=== PATIENT | male | born 1970 | race Caucasian/White ===

== ENCOUNTER 2024-05-28 15:54 | Emergency (ER) | payer OTHER ==
[~2024-05-28] VITALS: Ht 180.3 cm; Wt 104.3 kg
[~2024-05-28 15:54] MED LIST: NAPR-1172 PO; PRED20TA PO
[2024-05-28 15:57] VITALS: BP_SYST 141; PULSE 99; RESP 18; TEMP 98.1; O2SAT 98
[2024-05-28] MEDS: cephALEXin 500 MG CAPSULE PO ONE (16:23)
[2024-05-28] MEDS: DIPHTH,PERTUSS(ACELL),TET VAC 0.5 ML VIAL (Tdap) I.M. ONE (16:25)
[2024-05-28] MEDS ORDERED: CEPH-548 PO (16:31)
[2024-05-28] MEDS ORDERED: CEPHALEXIN 125 MG/5 ML, 100 ML BTL ONE (16:57)
[2024-05-28] MEDS ORDERED: cephALEXin 500 MG CAPSULE ONE (16:58)
== END 2024-05-28 16:52 | disposition home or self-care (01) ==
LOC: SED 15:54
DX: S91.011A Laceration without foreign body, right ankle, initial encounter (principal); Z23 Encounter for immunization; X58.XXXA Exposure to other specified factors, initial encounter; Y93.89 Activity, other specified; Y92.89 Other specified places as the place of occurrence of the external cause; Y99.8 Other external cause status
CPT/HCPCS: 90715; 99283